=== PATIENT | female | born 1980 | race Caucasian/White ===

== ENCOUNTER 2023-02-01 09:20 | Emergency (ER) | payer OTHER, SELFPAY ==
[2023-02-01 09:27] VITALS: BP 151/93; PULSE 84; RESP 18; TEMP 35.9; O2SAT 98; BMI 30.6
--- NOTE | 2023-02-01 09:45 | CRLHL7_ITS ---
For Patients: As a result of the Century Cures Act, medical imaging exams and procedure reports are released immediately into your electronic medical record. You may view this report before your referring provider. If you have questions, please contact your health care provider. INDICATION: Presyncope TECHNIQUE: CT head without contrast. COMPARISON: None. FINDINGS: CSF spaces: Within normal limits for age. Brain parenchyma: No intracranial bleed or mass effect. Focal encephalomalacia within the inferior aspect of the bilateral frontal lobes. Skull base and calvarium: The visualized paranasal sinuses and mastoid air cells demonstrate no acute or significant findings. The visualized orbits are grossly unremarkable. No skull fractures. IMPRESSION: 1. No intracranial bleed or mass effect. 2. 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 Please note that all CT scans at this facility use dose modulation, iterative reconstruction, and/or weight-based dosing when appropriate to reduce radiation dose to as low as reasonably achievable. Dictated by Alfred Schaefer MD @ 02/01/2023 10:24:00 AM (Electronically Signed)
--- NOTE | 2023-02-01 09:45 | CRLHL7_ITS ---
For Patients: As a result of the Century Cures Act, medical imaging exams and procedure reports are released immediately into your electronic medical record. You may view this report before your referring provider. If you have questions, please contact your health care provider. Indication: Shortness of breath Technique: Chest 2 views Comparison: None Findings/Impression: Cardiovascular and mediastinum: Heart size and vasculature are normal in caliber and appearance. Mediastinum is within normal limits. Lungs and pleural spaces: Lungs are clear. No sign of infiltrate or mass. No sign of pleural effusion. No pneumothorax. Bones and soft tissues: No significant findings. Dictated by Alfred Schaefer MD @ 02/01/2023 10:21:39 AM (Electronically Signed)
--- NOTE | 2023-02-01 09:48 | ED.GENADULT ---
HPI - General Adult General Chief complaint: Nausea/Vomiting Stated complaint: lightheaded, nausea Time Seen by Provider: 02/01/23 09:41 History of Present Illness HPI narrative: Pt awoke this morning feeling slightly light headed. Pt went to work otherwise feeling fine. Pt was sitting at her desk approximately an hour after she awoke and had the feeling that she was going to pass out. Pt seemed briefly confused to her boss. Pt at that time developed a twinge of pain the left of the midline in the posterior chest. This resolved but she developed further senstations that she was going to lose consciousness. Pt did not vomit. Pain was mild and sharp. Pt was brought to the ED where she is noted to be ambulatory. EKG upon arrival and upon my review shows normal sinus rhythm without any acute changes. Pt has had no similar issues previously. Related Data Home Medications Medication Instructions Recorded Confirmed dextromethorphan-guaifenesin PO 02/01/23 Allergies Allergy/AdvReac Type Severity Reaction Status Date / Time erythromycin base Allergy Verified 02/01/23 09:26 Review of Systems Status of ROS: Reports: 10 or more systems reviewed and unremarkable except as noted in History and below [facility] Social History Smoking Status: Never smoker How often do you have a drink containing alcohol: monthly or less AUDIT-C Alcohol total score: 1 Non-prescribed substance use: denies use service: No Exam Narrative: Exam Narrative: EXAM GENERAL: Patient appears comfortable and well. EYES: No scleral icterus. THYROID: no thyroid nodules or thyromegaly. LYMPH: No supraclavicular or cervical lymphadenopathy. SKIN: Visible skin seen during exam normal or with benign process only. EXT: No dependent lower extremity pedal edema. HEART: Regular rate and rhythm with no murmurs, rubs, or gallops. LUNGS: Clear to auscultation bilaterally with no crackles or wheezes. ABD: Soft, non tender, non distended. PSYCH: Good eye contact, speech is not pressured. Const: Vital Signs, click to edit/add: Vital Signs - 24 hr 02/01/23 09:27 Temperature 96.6 F L Pulse Rate [Right Pulse Oximeter] 84 Respiratory Rate 18 Blood Pressure [Ri ght Upper Arm] 151/93 H Pulse Oximetry 98 Oxygen Delivery Me thod Room Air Course Course Hospital Course: CT of the head, EKG, Chest x ray, troponin, d dimer, cmp, cbc, serum collected. 1 liter saline bolus given. Reevaluation(s) Reevaluation #1: Labs and imaging reassuring. Time: 11:15 Vital Signs Vital signs: Initial Vital Signs Temperature 96.6 F L 02/01/23 09:27 Temperature Source Temporal Artery Scan 02/01/23 09:27 Pulse Rate 84 02/01/23 09:27 Respiratory Rate 18 02/01/23 09:27 Blood Pressure 151/93 H 02/01/23 09:27 Blood Pressure Mean 112 02/01/23 09:27 Blood Pressure Position Sitting 02/01/23 09:27 Pulse Oximetry 98 02/01/23 09:27 Oxygen Delivery Method 02/01/23 09:27 Vital Signs Temperature 96.6 F L 02/01/23 09:27 Pulse Rate 84 02/01/23 09:27 Respiratory Rate 18 02/01/23 09:27 Blood Pressure 151/93 H 02/01/23 09:27 Pulse Oximetry 98 02/01/23 09:27 Oxygen Delivery Method 02/01/23 09:27 Temperature 96.6 F L 02/01/23 09:27 Pulse Rate 84 02/01/23 09:27 Respiratory Rate 18 02/01/23 09:27 Blood Pressure 151/93 H 02/01/23 09:27 Pulse Oximetry 98 02/01/23 09:27 Oxygen Delivery Method 02/01/23 09:27 Medical Decision Making MDM Narrative Medical decision making narrative: Pt is a 42 year old woman who presents with presyncope this morning. Pt has been taking OTC cough syrup. Pt work up unremarkable.. Labs and imaging ok on my review. Exam normal. Pt offered reassurance. Will follow up with me in the office as needed. Pt feeling better after normal saline. Differential Diagnosis Differential Diagnosis: PE, LA, CVA, Hypotension, Viral Illness, Presyncope Lab Data Labs: Lab Results 02/01/23 02/01/23 02/01/23 Range/Units 09:45 09:55 09:55 WBC 5.65 (4.50-11.00) K/uL RBC 4.72 (4.00-5.20) m/uL Hgb 14.8 (12.0-16.0) gm/dL Hct 42.8 (33.0-51.0) % MCV 91 (80-100) fL MCH 31 (26-34) pg MCHC 35 (32-36) gm/dL RDW Coeff of Rick 11.0 L (11.5-15.5) % Plt Count 224 (140-440) K/uL Neut % (Auto) 71.9 (42.0-72.0) % Lymph % (Auto) 17.7 L (20-44) % Tift % (Auto) 7.6 (0.0-11.0) % Eos % (Auto) 1.6 (0.0-7.0) % Baso % (Auto) 0.5 (0.0-3.0) % Neut # (Auto) 4.06 (1.7-7.0) K/uL Lymph # (Auto) 1.00 (0.90-2.90) K/uL Tift # (Auto) 0.40 (0.00-0.90) K/UL Eos # (Auto) 0.09 (0.00-0.50) K/uL Baso # (Auto) 0.03 (0.00-0.30) K/uL D-Dimer Quant (PE/DVT) 0.58 H (0.00-0.50) ug/ml Sodium (135-149) mmol/L Potassium (3.6-5.1) mmol/L Chloride (96-114) mmol/L Carbon Dioxide (20-32) mmol/L BUN (5-24) mg/dL Creatinine (0.5-1.5) mg/dL Estimated Creat Clear Estimated GFR ml/min Glucose (60-115) mg/dL Calcium (8.4-10.6) mg/dL Total Bilirubin (0.1-1.5) mg/dL AST (12-35) U/L ALT (4-35) U/L Alkaline Phosphatase (40-150) U/L Troponin I (0.01-0.04) ng/mL Total Protein (6.0-8.3) g/dL Albumin (3.3-5.0) g/dL HCG, Qual (Negative) Urine Color Yellow (Yellow) Urine Appearance Clear (Clear) Urine pH 7.0 (5.0-8.5) Ur Specific Wildrose 1.010 (1.000-1.030) Urine Protein Negative (Negative) Urine Glucose (UA) Negative (Negative) Urine Ketones Negative (Negative) Urine Blood Negative (Negative) Urine Nitrite Negative (Negative) Urine Bilirubin Negative (Negative) Urine Urobilinogen 0.2 (0.2-1.0) Ur Leukocyte Esterase Negative (Negative) 02/01/23 02/01/23 Range/Units 09:55 09:55 WBC (4.50-11.00) K/uL RBC (4.00-5.20) m/uL Hgb (12.0-16.0) gm/dL Hct (33.0-51.0) % MCV (80-100) fL MCH (26-34) pg MCHC (32-36) gm/dL RDW Coeff of Rick (11.5-15.5) % Plt Count (140-440) K/uL Neut % (Auto) (42.0-72.0) % Lymph % (Auto) (20-44) % Tift % (Auto) (0.0-11.0) % Eos % (Auto) (0.0-7.0) % Baso % (Auto) (0.0-3.0) % Neut # (Auto) (1.7-7.0) K/uL Lymph # (Auto) (0.90-2.90) K/uL Tift # (Auto) (0.00-0.90) K/UL Eos # (Auto) (0.00-0.50) K/uL Baso # (Auto) (0.00-0.30) K/uL D-Dimer Quant (PE/DVT) (0.00-0.50) ug/ml Sodium 138 (135-149) mmol/L Potassium 4.2 (3.6-5.1) mmol/L Chloride 106 (96-114) mmol/L Carbon Dioxide 27 (20-32) mmol/L BUN 10 (5-24) mg/dL Creatinine 0.6 (0.5-1.5) mg/dL Estimated Creat Clear 105.47 Estimated GFR 115 ml/min Glucose 117 H (60-115) mg/dL Calcium 9.2 (8.4-10.6) mg/dL Total Bilirubin 0.7 (0.1-1.5) mg/dL AST 45 H (12-35) U/L ALT 57 H (4-35) U/L Alkaline Phosphatase 58 (40-150) U/L Troponin I < 0.01 L (0.01-0.04) ng/mL Total Protein 7.5 (6.0-8.3) g/dL Albumin 4.6 (3.3-5.0) g/dL HCG, Qual Negative (Negative) Urine Color (Yellow) Urine Appearance (Clear) Urine pH (5.0-8.5) Ur Specific [place] (1.000-1.030) Urine Protein (Negative) Urine Glucose (UA) (Negative) Urine Ketones (Negative) Urine Blood (Negative) Urine Nitrite (Negative) Urine Bilirubin (Negative) Urine Urobilinogen (0.2-1.0) Ur Leukocyte Esterase (Negative) Discharge Plan Discharge Clinical Impression: Pre-syncope Condition: Stable Instructions: Near Syncope (ED) Additional Instructions: Continue current care without cough syrup Rest Fluids Follow up with Dr Demarco as needed Activity Level: No Restrictions Discharge Diet: Regular Prescriptions: No Action dextromethorphan-guaifenesin [Mucinex Cough] PO Stand Alone Forms: MyHealth Info Instructions
[2023-02-01 10:07] LABS: Basophils Absolute Auto 0.03 K/uL (0.00-0.30); Basophils Percent Auto 0.5 % (0.0-3.0); Eosinophils Absolute Auto 0.09 K/uL (0.00-0.50); Eosinophils Percent Auto 1.6 % (0.0-7.0); Hematocrit 42.8 % (33.0-51.0); Hemoglobin* 14.8 gm/dL (12.0-16.0); Immature Granulocytes Abs Auto 0.04 K/uL (0.00-0.30); Immature Granulocytes Pct Auto 0.7 %; Lymphocytes Percent Auto 17.7 % (20-44); Mean Corpuscular HGB Conc 35 gm/dL (32-36); Mean Corpuscular Hemoglobin 31 pg (26-34); Mean Corpuscular Volume 91 fL (80-100); Monocytes Percent Auto 7.6 % (0.0-11.0); Neutrophils Absolute Auto 4.06 K/uL (1.7-7.0); Neutrophils Percent Auto 71.9 % (42.0-72.0); Platelet Count* 224 K/uL (140-440); Red Blood Count 4.72 m/uL (4.00-5.20); White Blood Count* 5.65 K/uL (4.50-11.00)
[2023-02-01 10:13] LABS: Appearance Urine Clear (Clear); Bilirubin Urine Negative (Negative); Blood Urine Negative (Negative); Color Urine Yellow (Yellow); Glucose Urine Negative (Negative); Ketones Urine Negative (Negative); Leukocyte Esterase Urine Negative (Negative); Nitrite Urine Negative (Negative); Protein Urine Negative (Negative); Urobilinogen Urine 0.2 (0.2-1.0)
[2023-02-01 10:13] LABS: Slide Review Reflex No
[2023-02-01 10:22] LABS: Albumin* 4.6 g/dL (3.3-5.0)
[2023-02-01 10:23] LABS: Chloride* 106 mmol/L (96-114); Potassium* 4.2 mmol/L (3.6-5.1); Sodium* 138 mmol/L (135-149)
[2023-02-01 10:25] LABS: Aspartate Amino Transferase* 45 U/L (12-35); Bilirubin Total* 0.7 mg/dL (0.1-1.5); Carbon Dioxide* 27 mmol/L (20-32); Creatinine* 0.6 mg/dL (0.5-1.5); D Dimer Quantitative* 0.58 ug/ml (0.00-0.50); Est. Creatinine Clearance* 105.47; Estimated Glomerular Filt Rate 115 ml/min; Total Protein* 7.5 g/dL (6.0-8.3)
[2023-02-01 10:26] LABS: Alanine Aminotransferase* 57 U/L (4-35); Alkaline Phosphatase* 58 U/L (40-150); Blood Urea Nitrogen* 10 mg/dL (5-24); Calcium* 9.2 mg/dL (8.4-10.6); Glucose* 117 mg/dL (60-115)
[2023-02-01 10:35] LABS: HCG Qualitative Serum* Negative (Negative)
[2023-02-01 10:39] LABS: Troponin I* < 0.01 ng/mL (0.01-0.04)
== END 2023-02-01 11:24 | disposition home or self-care (01) ==
PROVIDERS: Emergency Provider Internal Medicine
DX: R42 Dizziness and giddiness (principal)
CPT/HCPCS: 36415; 70450; 71046; 80053; 81003; 84484; 84703; 85025; 85379; 99283; 99284